=== PATIENT | female | born 1980 | race Caucasian/White ===

== ENCOUNTER 2018-02-06 20:39 | Emergency (ER) | payer BC ==
[~2018-02-06 20:39] MED LIST: Albuterol/Ipratropium NEB.SOL* Albuterol 2.5 MG/Ipratropium 0.5 MG 3 ML INH ONE
[2018-02-06 20:44] VITALS: BP 108/65
[2018-02-06] MEDS ORDERED: predniSONE TAB* 20 MG PO ONE (20:56)
[2018-02-06] MEDS ORDERED: Albuterol 2.5 MG/3 ML NEB.SOL* (0.083%) INH ONE (20:56)
--- NOTE | 2018-02-06 21:26 | RAD ---
INDICATION: Constant cough x3 days COMPARISON: None TECHNIQUE: PA and lateral views of the chest were obtained. FINDINGS: The heart and mediastinum are normal in size and contour. The lungs are grossly clear. There is no evidence of large pleural effusion. Visualized bones are normal for the patient's age. There is no radiographic evidence of free air beneath the diaphragm IMPRESSION: No radiographic evidence of acute cardiopulmonary disease.
[2018-02-06] MEDS ORDERED: Azithromycin TAB* 250 MG PO ONE (21:38)
[2018-02-06] MEDS ORDERED: guaiFENesin/CODIEN 100MG-10MG* 5 ML UDC PO ONE (21:52)
--- NOTE | 2018-02-06 22:06 | UC ---
Respiratory Complaint HPI - HPI Summary HPI Summary: c/o relentless dry cough for the past 3 days, she is not aware of fever but has been sweating in bed. She has used a number of antihistamines which have not done much. SHe had last Tdap in 2008 with last . States she was at a neighbor's house whose children were recently treated for pertussis. - History of Current Complaint Chief Complaint: UCRespiratory Stated Complaint: SHORTNESS OF BREATH Time Seen by Provider: 02/06/18 20:56 Hx Obtained From: Patient Hx Last Menstrual Period: IUD ?: No Onset/Duration: Sudden Onset, Lasting Days Severity Initially: Moderate Severity Currently: Severe Pain Intensity: 0 Character: Cough: Nonproductive Associated Signs And Symptoms: Positive: Negative - Risk Factors Pulmonary Embolism Risk Factors: Negative Cardiac Risk Factors: Negative Pseudomonas Risk Factors: Negative Tuberculosis Risk Factors: Negative - Allergies/Home Medications Allergies/Adverse Reactions: Allergies Allergy/AdvReac Type Severity Reaction Status Date / Time No Known Allergies Allergy Verified 02/06/18 20:44 Home Medications: Home Medications Fexofenadine (NF) [Charisse (NF)] 60 mg PO DAILY 02/06/18 [History Confirmed 06/16] Loratadine 10 mg PO DAILY 02/06/18 [History Confirmed 02/06/18] diPHENhydraMINE PO* [Benadryl PO 25 MG TAB*] 25 mg PO Q6H PRN 02/06/18 [History Confirmed 02/06/18] PMH/Surg Hx/FS Hx/Imm Hx Previously Healthy: Yes Other History Of: Negative For: HIV, Hepatitis B, Hepatitis C - Surgical History Surgical History: Yes Surgery Procedure, Year, and Place: Left knee surgery - Family History Known Family History: Positive: Renal Disease Negative: Blood Disorder - Social History Alcohol Use: Daily Alcohol Amount: 1 a day Substance Use Type: None Smoking Status (MU): Never Smoked Tobacco Review of Systems Respiratory: Cough All Other Systems Reviewed And Are Negative: Yes Physical Exam - Summary Physical Exam Summary: coughing continuously during physical exam Triage Information Reviewed: Yes Appearance: Ill-Appearing Vital Signs: Initial Vital Signs Temp 99.0 F 02/06/18 20:39 Pulse 120 02/06/18 20:39 Resp 24 02/06/18 20:39 BP 108/65 02/06/18 20:39 Pulse Ox 98 02/06/18 20:39 Vital Signs Reviewed: Yes Eyes: Positive: Conjunctiva Clear ENT: Positive: Normal ENT inspection, Hearing grossly normal, Pharynx normal, TMs normal, Uvula midline Neck: Positive: Supple, Nontender, No Lymphadenopathy Respiratory: Positive: Chest non-tender, Lungs clear, Normal breath sounds, No respiratory distress Cardiovascular: Positive: RRR, No Murmur, Pulses Normal, Brisk Capillary Refill Abdomen Description: Positive: Nontender UC Diagnostic Evaluation - Laboratory O2 Sat by Pulse Oximetry: 99 Respiratory Course/Dx - Course Course Of Treatment: patient's cough has improved with treatemnt , will start zithromax empirically while awaiting results of pertussis culture. Continue with rest, hydration - Differential Dx/Diagnosis Provider Diagnoses: Relentless cough. Contact with pertussis Discharge - Sign-Out/Discharge Documenting (check all that apply): Discharge/Admit/Transfer - Discharge Plan Condition: Stable Disposition: HOME Prescriptions: Azithromycin TAB* [Zithromax TAB (Z-RAE) 250 mg #6 tabs] 2 tab PO .TODAY, THEN 1 DAILY #1 rae predniSONE [Deltasone 20 MG TAB] 40 mg PO DAILY #6 tab Patient Education Materials: Prednisone (By mouth), Azithromycin (By mouth), Pertussis (ED), Chronic Cough (ED) Forms: *Work Release Referrals: Viet Silveira MD [Primary Care Provider] - Additional Instructions: We are treating you with zithromax which covers a variety of pathogens including whooping cough. - Billing Disposition and Condition Condition: STABLE Disposition: Home
== END 2018-02-06 22:21 | disposition home or self-care (01) ==
LOC: UCCORT 20:39
DX: R05 Cough (principal); Z20.818 Contact with and (suspected) exposure to other bacterial communicable diseases
CPT/HCPCS: 71046; 86615; 87798; 99213; A9270-GY; G0463; J7512

== ENCOUNTER 2018-08-10 19:58 | Emergency (ER) | payer BC ==
[2018-08-10 20:45] VITALS: BP 121/73
--- NOTE | 2018-08-10 21:22 | UC ---
Hand/Wrist HPI - HPI Summary HPI Summary: The patient is a 38-year-old female that presents here for evaluation of a left hand injury. This occurred when she fell from the bed of her truck while she was washing it. She denies any other injury. She is right handed. - History Of Current Complaint Chief Complaint: UCUpperExtremity Stated Complaint: LEFT HAND INJ Time Seen by Provider: 08/10/18 20:39 Hx Obtained From: Patient Hx Last Menstrual Period: IUD Onset/Duration: Sudden Onset Severity Initially: Moderate Severity Currently: Mild Pain Intensity: 2 Pain Scale Used: 0-10 Numeric Character Of Pain: Aching, Throbbing, Spasmodic Aggravating Factor(s): Movement Alleviating Factor(s): Rest Associated Signs And Symptoms: Positive: Swelling Related History: Dominant Hand Right Hands: 1 - tender/swollen - Allergies/Home Medications Allergies/Adverse Reactions: Allergies Allergy/AdvReac Type Severity Reaction Status Date / Time No Known Allergies Allergy Verified 02/06/18 20:44 Home Medications: Home Medications Aspirin/Acetaminophen/Caffeine [Excedrin Extra Strength Caplet] 2 each PO ONCE 08/10/18 [History Confirmed 08/10/18] Levonorgestrel (Iud) [Mirena IUD] 1 each VAGINAL DAILY 08/10/18 [History Confirmed 08/10/18] PMH/Surg Hx/FS Hx/Imm Hx Previously Healthy: Yes Other History Of: Negative For: HIV, Hepatitis B, Hepatitis C - Surgical History Surgical History: Yes Surgery Procedure, Year, and Place: Left knee surgery - Family History Known Family History: Positive: Hypertension, Renal Disease Negative: Blood Disorder - Social History Alcohol Use: Daily Alcohol Amount: 1 a day Substance Use Type: None Smoking Status (MU): Never Smoked Tobacco Review of Systems All Other Systems Reviewed And Are Negative: Yes Constitutional: Positive: Negative Skin: Positive: Negative Eyes: Positive: Negative ENT: Positive: Negative Respiratory: Positive: Negative Cardiovascular: Positive: Negative Gastrointestinal: Positive: Negative Genitourinary: Positive: Negative Motor: Positive: Negative Neurovascular: Positive: Negative Musculoskeletal: Positive: Arthralgia Neurological: Positive: Negative Psychological: Positive: Negative Physical Exam Triage Information Reviewed: Yes Appearance: Well-Appearing, No Pain Distress, Well-Nourished Vital Signs: Initial Vital Signs Temp 99.1 F 08/10/18 20:40 Pulse 97 08/10/18 20:40 Resp 16 08/10/18 20:40 BP 121/73 08/10/18 20:40 Pulse Ox 99 08/10/18 20:40 Vital Signs Reviewed: Yes Eyes: Positive: Conjunctiva Clear ENT: Positive: Normal ENT inspection. Negative: Nasal congestion, Nasal drainage, Trismus, Muffled voice, Hoarse voice Neck: Positive: Supple, Nontender, No Lymphadenopathy Respiratory: Positive: Lungs clear, Normal breath sounds, No respiratory distress, No accessory muscle use Cardiovascular: Positive: RRR, No Murmur Musculoskeletal: Positive: Other: - see image Neurological: Positive: Alert Psychological Exam: Normal Skin Exam: Normal Diagnostics - Radiology No standard instances Radiology Interpretation Completed By: ED Physician Summary of Radiographic Findings: no fx Hand/Wrist Course/Dx - Differential Dx/Diagnosis Provider Diagnosis: Contusion of left thumb Discharge - Sign-Out/Discharge Documenting (check all that apply): Patient Departure All imaging exams completed and their final reports reviewed: No - Discharge Plan Condition: Stable Disposition: HOME Patient Education Materials: Contusion in Adults (ED) Referrals: Vitor Mann DO [Primary Care Provider] - Additional Instructions: thumb spica splint offical xr reading pending elevate ice advil or aleve see your orthopedist in not improved in 5-7 days - Billing Disposition and Condition Condition: STABLE Disposition: Home
--- NOTE | 2018-08-11 08:21 | UC ---
- Progress Note Progress Note: Patient Name: WESLEY THOMSON Medical Record#: [id number] Ordering Physician: Williams Palacios MD Acct.#: [id number] : 1980 Age: 38 Sex: F Location: [facility] Exam Date: 08/10/182048 ADM Status: [facility] ER Order Information: HAND - LEFT MINIMUM 3 VIEWS Accession Number: [id number] CPT: 29273 HISTORY: fall/tender/swollen base 1st [facility] COMPARISONS: None VIEWS: 5 , Frontal, lateral, and oblique views of the left hand with basal views of the first digit. FINDINGS: BONE DENSITY: Normal. BONES: There is no displaced fracture. JOINTS: There is no arthropathy. ALIGNMENT: There is no dislocation. SOFT TISSUES: Unremarkable. OTHER FINDINGS: None. IMPRESSION: NO ACUTE OSSEOUS INJURY. IF SYMPTOMS PERSIST, RECOMMEND REPEAT IMAGING. R0 Preliminary Imaging Read R0 <Electronically signed by Mal Basurto MD in OV> 08/11/18756 Dictated By: Mal Basurto MD Dictated Date/Time: 08/11/18756 Transcribed Date/Time: 08/11/18755 Copy to: CC:Vitor Mann DO; Williams Palacios MD Imaging - [facility] Imaging - [facility] [address] [place] [address] This report is only to be considered final once signed by the Provider(s) as displayed in the "<Electronically Signed by >" field (s). Absence of a signature indicates the report is in a draft status and still needs to be finalized. In the event this document was created by someone other than the signing Provider, the individual initiating the document will be listed in the "Entered by:" or "Dictated by:" berry. 1 of 2 Course/Dx - Diagnoses Provider Diagnoses: Contusion of left thumb Discharge - Sign-Out/Discharge Documenting (check all that apply): Post-Discharge Follow Up All imaging exams completed and their final reports reviewed: Yes - Discharge Plan Condition: Stable Disposition: HOME Patient Education Materials: Contusion in Adults (ED) Referrals: Vitor Mann, [Primary Care Provider] - Additional Instructions: thumb spica splint offical xr reading pending elevate ice advil or aleve see your orthopedist in not improved in 5-7 days - Billing Disposition and Condition Condition: STABLE Disposition: Home
== END 2018-08-10 21:24 | disposition home or self-care (01) ==
LOC: UCCORT 19:58
DX: S60.012A Contusion of left thumb without damage to nail, initial encounter (principal); W17.89XA Other fall from one level to another, initial encounter; Y93.89 Activity, other specified; Y92.9 Unspecified place or not applicable
CPT/HCPCS: 99213; G0463

== ENCOUNTER 2018-12-23 09:13 | Emergency (ER) | payer BC ==
[2018-12-23 09:50] VITALS: BP 106/73
--- NOTE | 2018-12-23 09:56 | UC ---
Skin Complaint HPI - HPI Summary HPI Summary: tick bite left knee and lower abdominal wall x 1 day small ticks , were removed by the pt. no fever, no chills, no joint pain , no rash - History of Current Complaint Chief Complaint: UCSkin Time Seen by Provider: 12/23/18 09:44 Stated Complaint: SKIN CONCERN LT LEG-TICK Hx Obtained From: Patient Hx Last Menstrual Period: IUD in place ?: No Onset/Duration: Gradual Onset, Lasting Days - 1, Resolved Timing: Constant Onset Severity: Mild Current Severity: Mild Pain Intensity: 1 Location: Discrete - left knee, lower abdominal wall Character: Redness Aggravating Factor(s): Nothing Alleviating Factor(s): Nothing Associated Signs & Symptoms: Negative: Nausea, Vomiting, Numbness, Thirst, Diaphoresis, Difficulty Breathing, Fever, Chills, Chest Pain, Bruising, Tenderness, Red Streaks - Allergy/Home Medications Allergies/Adverse Reactions: Allergies Allergy/AdvReac Type Severity Reaction Status Date / Time No Known Allergies Allergy Verified 12/23/18 09:49 Home Medications: Home Medications Ibuprofen 400 mg PO ONCE PRN 12/23/18 [History Confirmed 12/23/18] PMH/Surg Hx/FS Hx/Imm Hx Previously Healthy: Yes Other History Of: Negative For: HIV, Hepatitis B, Hepatitis C - Surgical History Surgical History: Yes Surgery Procedure, Year, and Place: Left knee surgery. vericose veins - Family History Known Family History: Positive: Hypertension, Renal Disease Negative: Blood Disorder - Social History Alcohol Use: Occasionally Alcohol Amount: 1 a day Substance Use Type: None Smoking Status (MU): Never Smoked Tobacco Review of Systems All Other Systems Reviewed And Are Negative: Yes Constitutional: Positive: Negative Eyes: Positive: Negative ENT: Positive: Negative Respiratory: Positive: Negative Cardiovascular: Positive: Negative Is Patient Immunocompromised?: No Physical Exam Triage Information Reviewed: Yes Appearance: Well-Appearing, No Pain Distress, Well-Nourished Vital Signs: Initial Vital Signs Temp 97.5 F 12/23/18 09:45 Pulse 87 12/23/18 09:45 Resp 18 12/23/18 09:45 BP 106/73 12/23/18 09:45 Pulse Ox 97 12/23/18 09:45 Vital Signs Reviewed: Yes Eye Exam: Normal Eyes: Positive: Conjunctiva Clear ENT: Positive: Normal ENT inspection, Hearing grossly normal, Pharynx normal, TMs normal Neck: Positive: Supple, Nontender, No Lymphadenopathy Respiratory: Positive: Chest non-tender, Lungs clear, Normal breath sounds, No respiratory distress Cardiovascular: Positive: RRR, No Murmur, Pulses Normal Abdominal Exam: Normal Skin: Positive: Other - tick site left knee, no swelling, mild erythem, no discharge Course/Dx - Diagnoses Provider Diagnosis: Tick bite of knee Discharge - Sign-Out/Discharge Documenting (check all that apply): Patient Departure All imaging exams completed and their final reports reviewed: No Studies - Discharge Plan Condition: Stable Disposition: HOME Prescriptions: DOXYcycline CAP(*) [DOXYcycline 100MG CAP(*)] 200 mg PO DAILY #2 cap Patient Education Materials: Tick Bite (ED) Referrals: Vitor Mann DO [Primary Care Provider] - If Needed - Billing Disposition and Condition Condition: STABLE Disposition: Home
== END 2018-12-23 09:57 | disposition home or self-care (01) ==
LOC: UCCORT 09:13
DX: S80.862A Insect bite (nonvenomous), left lower leg, initial encounter (principal); W57.XXXA Bitten or stung by nonvenomous insect and other nonvenomous arthropods, initial encounter; Y92.9 Unspecified place or not applicable
CPT/HCPCS: 99212; G0463